=== PATIENT | male | born 1940 | race Caucasian/White ===

== ENCOUNTER → 2018-03-13 | Outpatient (REF) | payer MEDICARE, OTHER | LOC: M LAB REF 18:11 | DX: C44.529 Squamous cell carcinoma of skin of other part of trunk (principal) | CPT/HCPCS: 88305 ==

== ENCOUNTER → 2018-06-05 | Outpatient (REF) | payer MEDICARE, OTHER ==
[2018-06-05 12:32] LABS: RHEUMATOID FACTOR QUANT < 10.0 IU/ML (<15.0)
== END ==
LOC: M LABDRAW1 10:33
DX: M48.062 Spinal stenosis, lumbar region with neurogenic claudication (principal)
CPT/HCPCS: 36415

== ENCOUNTER 2018-09-19 09:16 | Day surgery (SDC) | payer MEDICARE, OTHER ==
[~2018-09-19] VITALS: Ht 170.2 cm; Wt 108.0 kg
[~2018-09-19 09:16] MED LIST: CARV25TA PO; D 50CAP PO; DIGO0.12 PO; DILT180C22 PO; DOCU250C7 PO; FOLI1TAB11 PO; HYDR25TAB PO; LISI10TA4 PO; LR 1,000 ML IV ONE; LYRI75CA PO; METO25TA4 PO; NEUR600T PO; PERC5TAB12 PO; SILD100T PO; SIMV20TA2 PO; TRAM50TA2 PO; TYLE325T5 PO; VALS1TAB46 PO; VITA500C24 PO; XARE20TA PO
[2018-09-19] MEDS ORDERED: ONDANSETRON 4MG/2ML VIAL (J2405) As Ordered ONE (09:18)
[2018-09-19] MEDS ORDERED: LIDOCAINE 2% INJ 100 MG/5 ML SDV (FOR ANES.) As Ordered ONE (09:18)
[2018-09-19] MEDS ORDERED: MIDAZOLAM INJ 2 MG/2 ML VIAL (J2250) As Ordered ONE (09:18)
[2018-09-19] MEDS ORDERED: PROPOFOL 200 MG/20 ML VIAL As Ordered ONE ×2 (09:18→11:57)
[2018-09-19] MEDS ORDERED: fentaNYL 100 MCG/2 ML INJECTION (J3010) As Ordered ONE (09:19)
[2018-09-19] MEDS ORDERED: ceFAZolin SOD 1 GM in D5W MINI-BAG PLUS 50 ML IV ONE (10:00)
[2018-09-19 12:40] VITALS: BP 125/67
[2018-09-19] MEDS ORDERED: LIDOCAINE 2% W/EPIN INJ 20ML **PRES FREE As Ordered ONE (12:43)
--- NOTE | 2018-09-19 12:48 | POST-OPPD ---
Postoperative Procedure Note Date Of Procedure: Sep 19, 2018 PREOPERATIVE DIAGNOSIS: Malignant melanoma right ear POSTOPERATIVE DIAGNOSIS: same FINDINGS: 0.3x0.8cm pale pink lesion/scar PROCEDURE: Excision malignant melanoma right ear SURGEON: Dr Tripathi ANESTHESIA: Local with sedation SPECIMENS: 1 malignant lesion with margins 2 additional tissue ESTIMATED BLOOD LOSS: 5 cc REPLACED: none DRAINS: none COMPLICATIONS: none POSTOPERATIVE CONDITION: stable to recovery RODERICK TRIPATHI DO Sep 19, 2018 12:48
--- NOTE | 2018-09-19 14:13 | RO ---
DATE OF PROCEDURE: 09/19/2018 PREPROCEDURE DIAGNOSIS: Malignant melanoma of right ear. POSTPROCEDURE DIAGNOSIS: Malignant melanoma of right ear. PROCEDURE: Excision of malignant melanoma of the right ear with advanced flap closure. SURGEON: Pooja Cloud DO ANESTHESIA: Local with sedation. SPECIMEN: Malignant melanoma lesion with margins, additional tissue as a separate specimen. ESTIMATED BLOOD LOSS: 5 mL. FLUID REPLACEMENTS: None. DRAINS: None. COMPLICATIONS: None. DESCRIPTION OF PROCEDURE: This is a 78-year-old male who presented to our office status post biopsy of the right posterior ear, middle portion of the ear. 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 The patient is here for official excision. Risks, benefits and alternatives were discussed with the patient in length, as well as his , and he is ready to proceed. On the day of surgery, the patient was reexamined. There is a scar at the area where the biopsy was done and that whole area with the lesion measures 0.3 x 0.8 cm and it is pale-pink type of scar/lesion. I outlined that area with patient and confirming placement. We brought the patient to the operating room and placed him in supine position. Preoperative antibiotics were given. Sequentials were placed on the lower calves. He was prepped and draped in the usual sterile fashion. We have outlined 0.5 cm margins around the lesion and 2% lidocaine with epinephrine was infiltrated in that area. When anesthesia was working, we made an elliptical incision that was designed around the lesion and the lesion was excised entirely with a #10 blade, a suture marking 12 o'clock, sent to pathology for permanent section. Hemostasis was obtained using electrocautery. We reexamined the defect, which is now 1.7 cm in length and 1 cm in width. We designed an attachment flap inferiorly and superiorly that would be able to close the defect. Flaps were raised and elevated inferiorly and superiorly in order to create advancement. A small amount of cartilage was resected. Also, the gap was reapproximated on the cartilage side with #4-0 Monocryl sutures that gave us a good approximation for free tension skin closure. The skin was advanced then closed in layers with #5-0 Monocryl sutures, the small dog ear was resected. There was also a core suture with #4-0 nylon, which was holding the anterior portion below the helix that is holding the symmetry and approximation of the ear. Closure was completed and Steri-Strips were applied. The patient was in comfortable condition. He was transferred to the recovery room awake. ANTHONY
== END 2018-09-19 13:55 | disposition home or self-care (01) ==
LOC: M SDC 09:16
PROVIDERS: ATTEND Plastic Surgery Surgery of the Hand
DX: D03.21 Melanoma in situ of right ear and external auricular canal (principal); I10 Essential (primary) hypertension; E78.5 Hyperlipidemia, unspecified; I48.91 Unspecified atrial fibrillation; Z79.899 Other long term (current) drug therapy; G47.30 Sleep apnea, unspecified; Z79.01 Long term (current) use of anticoagulants; N40.0 Benign prostatic hyperplasia without lower urinary tract symptoms; Z87.891 Personal history of nicotine dependence
CPT/HCPCS: 14060; 88305; J0690; J2250; J2405; J3010